=== PATIENT | male | born 1995 | race Caucasian/White ===

== ENCOUNTER 2023-03-03 19:30 | Emergency (ER) | payer MEDICAID, OTHER ==
[~2023-03-03] VITALS: Ht 188 cm; Wt 77.1 kg
[2023-03-03 20:02] VITALS: BP_SYST 118
[2023-03-03 21:15] VITALS: BP_SYST 118
== END 2023-03-03 21:15 | disposition home or self-care (01) ==
LOC: SED 19:30
DX: L02.11 Cutaneous abscess of neck (principal); D17.0 Benign lipomatous neoplasm of skin and subcutaneous tissue of head, face and neck; Z79.899 Other long term (current) drug therapy
CPT/HCPCS: 99284